=== PATIENT | female | born 1940 | race Caucasian/White ===

== ENCOUNTER 2022-03-26 19:58 | Emergency (ER) | payer MEDICARE, OTHER ==
[2022-03-26 20:13] VITALS: O2SAT 98
[2022-03-26] MEDS ORDERED: Sodium Chloride 0.9% 1000 ML 1,000 ML IV STA (20:38)
[2022-03-26] MEDS ORDERED: Sodium Chloride 0.9% 1000 ML 1,000 ML ONE (20:40)
[2022-03-26 20:53] LABS: Absolute Neutrophil Ct (ANC) 3.87 x10^3/uL (1.4-6.9); Basophil (Absolute #) 0.01 x10^3/uL (0-0.4); Eosinophil % 0.2 % (0.00-5.0); Eosinophil (Absolute #) 0.01 x10^3/uL (0-0.5); Hemoglobin 13.1 g/dL (12.0-16.0); Lymphocyte (Absolute #) 0.56 x10^3/uL (1.0-4.6); Lymphocytes % 11.3 % (24.0-44.0); Mean Cell Volume 83.7 fL (78-100); Mean Corpuscular Hemoglobin 27.4 pg (26-32); Mean Corpuscular Hgb Concent. 32.8 g/dL (32-36); Mean Platelet Volume 11.2 fL (7.5-11.0); Monocytes % 10.1 % (0.0-12.0); Neutrophil % 77.8 % (36.0-66.0); Platelet Count 124 x10^3/uL (150-450); Red Blood Count 4.78 x10^6/uL (4.1-5.4); Red Cell Distribution Width 13.7 % (11.5-14.0)
--- NOTE | 2022-03-26 20:58 | ERPHSYRPT ---
- History of Present Illness Time Seen by Provider: 03/26/22 20:08 Source: patient Exam Limitations: no limitations Patient Subjective Stated Complaint: pt states "I haven't been feeling well for a week or so. I can't eat. I get sick to my stomach when I eat." Triage Nursing Assessment: pt ambulatory to bed by self, alert and oriented x3, skin pwd, pt c/o generally not feeling well for a week, pt states "I am sick to my stomach every time I eat." Dr. Yo recently prescribed zofran odt and amoxicillin for an infected tooth, Pt started taking the amoxicillin on monday for tooth, pt also had labs recently and sodium was low so patient had to go to the infusion center Physician History: 81 years old female with history of hypothyroidism presented in the ER with 1 week history of decreased oral intake, feeling nauseated all the time and worsening with oral intake with some abdominal discomfort in the upper abdomen. Denies any vomiting. Patient has been placed on amoxicillin for almost last 5 days for tooth infection and does report having some loose stool couple days ago which improved now. No fever or chills reported. Feels weak fatigued tired with lack of energy. Currently she does not have any abdominal pain. Has any chest pain palpitations or shortness of breath. No fever or chills reported. Timing/Duration: week(s) (1), gradual onset, worse Severity: moderate Modifying Factors: Worsens With: eating Associated Symptoms: nausea, abdominal pain, loss of appetite, malaise, weakness, No shortness of breath, No cough, No chills, No chest pain, No headaches, No syncope, No seizure Allergies/Adverse Reactions: Sulfa (Sulfonamide Antibiotics) Allergy (Verified 03/24/22 13:46) Hives Home Medications: Acetaminophen 325 mg [Tylenol 325 mg] 325 mg PO DAILY PRN PRN 03/24/22 [History] Atorvastatin Calcium [Lipitor] 10 mg PO DAILY 03/24/22 [History] B,C/Folic/Zinc/Copper Ox/Vit E [Stress B-Complex Tablet] 0.5 tab PO DAILY [History] Cholecalciferol (Vitamin D3) [Vitamin D3] 50 mcg PO DAILY 03/24/22 [History] Cyanocobalamin (Vitamin B-12) [Vitamin B-12] 500 mcg PO DAILY 03/24/22 [History] Ibuprofen [Advil] 200 mg PO DAILY PRN PRN 03/24/22 [History] Levocetirizine Dihydrochloride [Xyzal] 1 tab PO DAILY 03/24/22 [History] Levothyroxine Sodium 75 Mcg [Synthroid 75 Mcg] 75 mcg PO DAILY 03/24/22 [History] Magnesium Citrate and Oxide [Magnesium] 250 mg PO DAILY 03/24/22 [History] Ubidecarenone [Coq10] 100 mg PO DAILY 03/24/22 [History] methocarbamoL [Methocarbamol] 500 mg PO DAILY PRN PRN 03/24/22 [History] Hx Tetanus, Diphtheria Vaccination/Date Given: No Hx Influenza Vaccination/Date Given: No Hx Pneumococcal Vaccination/Date Given: No Immunizations Up to Date: No Travel Risk - International Travel Have you traveled outside of the country in past 3 weeks: No - Coronavirus Screening Are you exhibiting any of the following symptoms?: No Close contact with a COVID-19 positive Pt in past 14-21 Days: No - Vaccine Status Have you recieved a Covid-19 vaccination: No - Review of Systems Constitutional: Fatigue, Weakness Eyes: No Symptoms Ears, Nose, & Throat: No Symptoms Respiratory: No Symptoms Cardiac: No Symptoms Abdominal/Gastrointestinal: Nausea Genitourinary Symptoms: No Symptoms Musculoskeletal: No Symptoms Neurological: No Symptoms Psychological: No Symptoms Endocrine: No Symptoms Hematologic/Lymphatic: No Symptoms Immunological/Allergic: No Symptoms - Past Medical History Pertinent Past Medical History: Yes Neurological History: No Pertinent History ENT History: No Pertinent History Cardiac History: High Cholesterol Respiratory History: No Pertinent History Endocrine Medical History: Hypothyroidism Musculoskeletal History: No Pertinent History GI Medical History: No Pertinent History History: No Pertinent History Psycho-Social History: No Pertinent History Female Reproductive Disorders: Other Other Medical History: vaginal prolaps - Past Surgical History Past Surgical History: No Neuro Surgical History: No Pertinent History Cardiac: No Pertinent History Respiratory: No Pertinent History Gastrointestinal: No Pertinent History Genitourinary: No Pertinent History Musculoskeletal: No Pertinent History Female Surgical History: No Pertinent History - Social History Smoking Status: Former smoker Exposure to second hand smoke: No Drug Use: none Patient Lives Alone: Yes - Nursing Vital Signs Nursing Vital Signs: Initial Vital Signs Temperature 99.1 F 03/26/22 20:13 Pulse Rate 86 03/26/22 20:13 Respiratory Rate 18 03/26/22 20:13 Blood Pressure 185/98 03/26/22 20:13 O2 Sat by Pulse Oximetry 98 03/26/22 20:13 Pain Scale Pain Intensity 0 - Physical Exam General Appearance: no apparent distress, alert Eye Exam: PERRL/EOMI Ears, Nose, Throat Exam: TMs normal, pharynx normal Neck Exam: normal inspection, supple, full range of motion Respiratory Exam: normal breath sounds, lungs clear Cardiovascular Exam: regular rate/rhythm, normal heart sounds Gastrointestinal/Abdomen Exam: soft, normal bowel sounds, No tenderness, No guarding Back Exam: normal inspection, normal range of motion Extremity Exam: normal inspection, normal range of motion Neurologic Exam: alert, oriented x 3, cooperative Skin Exam: normal color SpO2 Interpretation: normal SpO2: 98 O2 Delivery: Room Air Ordered Tests: Active Orders 24 hr Category Date Time Status IV Insertion STAT Care 03/26/22 20:38 Completed NPO (ED) STAT Care 03/26/22 20:38 Completed Release AMA OM.NOW Care 03/26/22 21:59 Completed ABDOMEN AND PELVIS W/0 CONTRAS [CT] Stat Exams 03/26/22 20:38 Taken CBC W DIFF Stat Lab 03/26/22 20:48 Completed CMP Stat Lab 03/26/22 20:48 Completed LIPASE Stat Lab 03/26/22 20:48 Completed MAG [MAGNESIUM] Stat Lab 03/26/22 20:48 Completed TROPONIN Q4H Lab 03/26/22 20:48 Completed TSH [TSH, 3RD Generation] Stat Lab 03/26/22 20:30 Completed UA W/RFX CULTURE Stat Lab 03/26/22 20:40 Completed Medication Summary Discontinued Medications Generic Name Dose Route Start Last Admin Trade Name Freq PRN Reason Stop Dose Admin Sodium Chloride 1,000 mls @ 999 mls/hr 03/26/22 20:38 03/26/22 21:46 Sodium Chloride 0.9% 1000 Ml IV 03/26/22 21:38 Infused .Q1H1M STA Infusion Sodium Chloride Confirm 03/26/22 20:40 Sodium Chloride 0.9% 1000 Ml Administered 03/26/22 20:41 Dose 1,000 mls @ ud .ROUTE .[facility] Lab/Rad Data: Laboratory Result Diagrams 03/26/22 20:48 03/26/22 20:48 Laboratory Results 03/26/22 03/26/22 03/26/22 Range/Units 20:48 20:48 20:48 WBC (4.0-10.5) x10^3/uL RBC (4.1-5.4) x10^6/uL Hgb (12.0-16.0) g/dL Hct (35-47) % MCV (78-100) fL MCH (26-32) pg MCHC (32-36) g/dL RDW (11.5-14.0) % Plt Count (150-450) x10^3/uL MPV (7.5-11.0) fL Gran % (36.0-66.0) % Immature Gran % (Auto) (0.00-0.4) % Nucleat RBC Rel Count (0.00-0.1) % Eos # (Auto) (0-0.5) x10^3/uL Immature Gran # (Auto) (0.00-0.03) x10^3u/L Absolute Lymphs (auto) (1.0-4.6) x10^3/uL Absolute Monos (auto) (0.0-1.3) x10^3/uL Absolute Nucleated RBC (0.00-0.01) x10^3u/L Lymphocytes % (24.0-44.0) % Monocytes % (0.0-12.0) % Eosinophils % (0.00-5.0) % Basophils % (0.0-0.4) % Absolute Granulocytes (1.4-6.9) x10^3/uL Basophils # (0-0.4) x10^3/uL Sodium 125 L (137-145) mmol/L Potassium 3.6 (3.5-5.1) mmol/L Chloride 90 L (98-107) mmol/L Carbon Dioxide 28 (22-30) mmol/L Anion Gap 10.6 (5-15) MEQ/L BUN 16 (7-17) mg/dL Creatinine 1.17 H (0.52-1.04) mg/dL Estimated GFR 47.4 ML/MIN Glucose 149 H (74-106) mg/dL Calcium 9.2 (8.4-10.2) mg/dL Magnesium 2.0 (1.6-2.3) mg/dL Total Bilirubin 0.90 (0.2-1.3) mg/dL AST 35 (14-36) U/L ALT 26 (0-35) U/L Alkaline Phosphatase 78 (38-126) U/L Troponin I < 0.012 (0.000-0.034) ng/mL Serum Total Protein 6.7 (6.3-8.2) g/dL Albumin 4.2 (3.5-5.0) g/dL Lipase 125 (23-300) U/L TSH 3rd Generation (0.47-4.68) mIU/L Urinalys Dipstick Clnc Urine Color (YELLOW) Urine Appearance (CLEAR) Urine pH (5-6) Ur Specific [place] (1.005-1.025) POC Urine Protein Conf (Negative) Urine Ketones (NEGATIVE) Urine Nitrite (NEGATIVE) Urine Bilirubin (NEGATIVE) Urine Urobilinogen (0-1) mg/dL Urine Leukocytes (NEGATIVE) Urine WBC (Auto) (0-5) /HPF Urine RBC (Auto) (0-2) /HPF U Epithel Cells (Auto) (FEW) /HPF Urine Bacteria (Auto) (NEGATIVE) /HPF Urine RBC (0-5) Lucas/ul Ur Culture Indicated? Urine Glucose (NEGATIVE) mg/dL 03/26/22 03/26/22 03/26/22 Range/Units 20:48 20:40 20:30 WBC 5.0 (4.0-10.5) x10^3/uL RBC 4.78 (4.1-5.4) x10^6/uL Hgb 13.1 (12.0-16.0) g/dL Hct 40.0 (35-47) % MCV 83.7 (78-100) fL MCH 27.4 (26-32) pg MCHC 32.8 (32-36) g/dL RDW 13.7 (11.5-14.0) % Plt Count 124 L (150-450) x10^3/uL MPV 11.2 H (7.5-11.0) fL Gran % 77.8 H (36.0-66.0) % Immature Gran % (Auto) 0.4 (0.00-0.4) % Nucleat RBC Rel Count 0.0 (0.00-0.1) % Eos # (Auto) 0.01 (0-0.5) x10^3/uL Immature Gran # (Auto) 0.02 (0.00-0.03) x10^3u/L Absolute Lymphs (auto) 0.56 L (1.0-4.6) x10^3/uL Absolute Monos (auto) 0.50 (0.0-1.3) x10^3/uL Absolute Nucleated RBC 0.00 (0.00-0.01) x10^3u/L Lymphocytes % 11.3 L (24.0-44.0) % Monocytes % 10.1 (0.0-12.0) % Eosinophils % 0.2 (0.00-5.0) % Basophils % 0.2 (0.0-0.4) % Absolute Granulocytes 3.87 (1.4-6.9) x10^3/uL Basophils # 0.01 (0-0.4) x10^3/uL Sodium (137-145) mmol/L Potassium (3.5-5.1) mmol/L Chloride (98-107) mmol/L Carbon Dioxide (22-30) mmol/L Anion Gap (5-15) MEQ/L BUN (7-17) mg/dL Creatinine (0.52-1.04) mg/dL Estimated GFR ML/MIN Glucose (74-106) mg/dL Calcium (8.4-10.2) mg/dL Magnesium (1.6-2.3) mg/dL Total Bilirubin (0.2-1.3) mg/dL AST (14-36) U/L ALT (0-35) U/L Alkaline Phosphatase (38-126) U/L Troponin I (0.000-0.034) ng/mL Serum Total Protein (6.3-8.2) g/dL Albumin (3.5-5.0) g/dL Lipase (23-300) U/L TSH 3rd Generation 3.870 (0.47-4.68) mIU/L Urinalys Dipstick Clnc MAIN LAB Urine Color YELLOW (YELLOW) Urine Appearance CLEAR (CLEAR) Urine pH 7.0 (5-6) Ur Specific [place] 1.015 (1.005-1.025) POC Urine Protein Conf NEGATIVE (Negative) Urine Ketones NEGATIVE (NEGATIVE) Urine Nitrite NEGATIVE (NEGATIVE) Urine Bilirubin NEGATIVE (NEGATIVE) Urine Urobilinogen 0.2 (0-1) mg/dL Urine Leukocytes NEGATIVE (NEGATIVE) Urine WBC (Auto) 0-2 (0-5) /HPF Urine RBC (Auto) NONE (0-2) /HPF U Epithel Cells (Auto) RARE (FEW) /HPF Urine Bacteria (Auto) NONE SEEN (NEGATIVE) /HPF Urine RBC NEGATIVE (0-5) Lucas/ul Ur Culture Indicated? NO Urine Glucose NEGATIVE (NEGATIVE) mg/dL - Progress Progress: improved Progress Note: 03/26/22 21:57 81-year-old is evaluated for generalized weakness, decreased oral intake/ano rexia with low sodium needing IV fluid yesterday with improvement in level of sodium. She is given fluids in here along with Zofran. Feeling much better on reevaluation. Lab work showed sodium of 125. CT abdomen pelvis grossly unremarkable. No UTI. Recommended observation admission which she refused. Patient is not confused or altered at all and wants to leave AGAINST MEDICAL ADVICE. Patient states "I have a lot of animals to take care of and I will follow-up with Dr. Mendieta on Monday." He is advised to follow-up outpatient and discuss signs symptoms of worsening with hyponatremia including seizure, altered mental status needing return which she seems understanding Counseled pt/family regarding: lab results, diagnosis, need for follow-up, rad results - Departure Departure Disposition: AMA Clinical Impression: Hyponatremia, General weakness, Anorexia Condition: Stable Critical Care Time: No Referrals: SEVEN YO DO [Primary Care Provider] - Follow up/PCP as directed (IN 2 DAYS FOR RE EVALUATION ) Instructions: Dehydration, Adult (DC), Hyponatremia (DC) Additional Instructions: Keep yourself well-hydrated. Follow-up with your primary care for reevaluation. Return to ER for worsening of your nausea, decreased oral intake. Decrease free water intake.
[2022-03-26 20:59] LABS: ALBUMIN 4.2 g/dL (3.5-5.0); ANION GAP 10.6 MEQ/L (5-15); BILIRUBIN,TOTAL 0.9 mg/dL (0.2-1.3); Calcium 9.2 mg/dL (8.4-10.2); Creatinine 1 1.17 mg/dL (0.52-1.04); EST GLOMERULAR FILTRATION RATE 47.4 ML/MIN; Potassium 3.6 mmol/L (3.5-5.1); Total Protein 6.7 g/dL (6.3-8.2)
[2022-03-26 21:01] LABS: Appearance CLEAR (CLEAR); Bilirubin NEGATIVE (NEGATIVE); Dipstick done @ ? MAIN LAB; Glucose NEGATIVE (NEGATIVE); Ketones NEGATIVE (NEGATIVE); Nitrite NEGATIVE (NEGATIVE); Protein,Urine Dip NEGATIVE (Negative); RBC NEGATIVE Ery/ul (0-5); Specific Gravity 1.015 (1.005-1.025); Urobilinogen 0.2 mg/dL (0-1)
[2022-03-26 21:02] LABS: Bacteria NONE SEEN /HPF (NEGATIVE); Epithelial Cells RARE /HPF (FEW); WBC 0-2 /HPF (0-5)
[2022-03-26 21:03] LABS: Urine Cultured Indicated? NO
[2022-03-26 21:07] VITALS: BP 156/66; PULSE 97
--- NOTE | 2022-03-27 09:55 | XRAY ---
Indication: Abdomen discomfort and nausea. Multiple contiguous axial images obtained through the abdomen and pelvis without contrast. Comparison: None Lung bases demonstrates moderate bilateral dependent atelectasis versus infiltrates. No effusion. Heart not enlarged. Stomach mildly distended with food/fluid. Noncontrasted stomach and bowel loops appear nonobstructed with normal appendix. Contracted gallbladder without gallstones. No free fluid/air. Nonobstructing left renal punctate calculus and 8mm calcified uterine fibroid. Remaining liver, gallbladder, pancreas, spleen, adrenal glands, kidneys, ureters, bladder, and uterus appear unremarkable for noncontrast exam. Moderate scattered aortoiliac calcifications without AAA. Osseous structures intact with mild osteopenia and mild/moderate degenerative changes throughout the spine. Impression: 1. Bibasilar dependent atelectasis versus infiltrates. 2. Nonobstructing left renal punctate calculus, subcentimeter calcified uterine fibroid, arteriosclerotic disease, and chronic bony findings. 3. Remaining CT abdomen/pelvis without contrast exam is negative. Comment: Preliminary interpretation made by [facility]. No critical discrepancy.
== END 2022-03-26 21:59 | disposition left against medical advice (07) ==
LOC: ED 19:58
DX: E87.1 Hypo-osmolality and hyponatremia (principal); R53.1 Weakness; R63.0 Anorexia; R11.0 Nausea; R10.10 Upper abdominal pain, unspecified; R53.83 Other fatigue; E78.5 Hyperlipidemia, unspecified; Z79.899 Other long term (current) drug therapy; Z28.310 Unvaccinated for COVID-19
CPT/HCPCS: 36000; 36415; 74176; 80053; 81015; 83690; 83735; 84443; 84484; 85025; 96360; 99284

== ENCOUNTER 2022-03-27 09:21 | Observation (INO) | payer MEDICARE, OTHER ==
[2022-03-27] MEDS ORDERED: TYLENOL 325 MG PO PRN (10:21)
[2022-03-27] MEDS ORDERED: Sodium Chloride 0.9% 1000 ML 1,000 ML IV STA (10:21)
--- NOTE | 2022-03-27 10:29 | PCM.HP ---
History of Present Illness - Chief Complaint Chief Complaint: hyponatremia, weakness History of Present Illness: is a 81 year old female. Patient is 81-year-old female with significant past medical history of hypothyroidism recently patient has been treated with antibiotic for colitis and since last few days patient has not been eating well so she was seen in ER last night where her potassium was found to be 125 mmol/L so patient was advised to be admitted for further evaluation but person refused and she went home today morning she came and she wants to be admitted so she was admitted as a direct admit for treatment of weakness and low up sodium. Patient denies any other symptoms. - Review of Systems Constitutional: Weakness, No Fever, No Chills Eyes: No Symptoms Ears, Nose, & Throat: No Symptoms Respiratory: No Cough, No Short Of Breath Cardiac: No Chest Pain, No Edema, No Syncope Abdominal/Gastrointestinal: No Abdominal Pain, No Nausea, No Vomiting, No Diarrhea Genitourinary Symptoms: No Dysuria Musculoskeletal: No Back Pain, No Neck Pain Skin: No Rash Neurological: No Dizziness, No Focal Weakness, No Sensory Changes Psychological: No Symptoms Endocrine: No Symptoms Hematologic/Lymphatic: No Symptoms Immunological/Allergic: No Symptoms Medications & Allergies Home Medications: Home Medication List Acetaminophen 325 mg [Tylenol 325 mg] 325 mg PO DAILY PRN PRN 03/24/22 [History Confirmed 03/27/22] Atorvastatin Calcium [Lipitor] 10 mg PO HS 03/24/22 [History Confirmed 03/27/22] B,C/Folic/Zinc/Copper Ox/Vit E [Stress B-Complex Tablet] 0.5 tab PO DAILY 03/24/22 [History Confirmed 03/27/22] Cholecalciferol (Vitamin D3) [Vitamin D3] 50 mcg PO DAILY 03/24/22 [History Confirmed 03/27/22] Cyanocobalamin (Vitamin B-12) [Vitamin B-12] 500 mcg PO DAILY 03/24/22 [History Confirmed 03/27/22] Ibuprofen [Advil] 200 mg PO DAILY PRN PRN 03/24/22 [History Confirmed 03/27/22] Levocetirizine Dihydrochloride [Xyzal] 0.5 tab PO DAILY 03/24/22 [History Confirmed 03/27/22] Levothyroxine Sodium 75 Mcg [Synthroid 75 Mcg] 0.5 tab PO DAILY 03/24/22 [History Confirmed 03/27/22] Magnesium Citrate and Oxide [Magnesium] 250 mg PO HS 03/24/22 [History Confirmed 03/27/22] Ubidecarenone [Coq10] 100 mg PO DAILY 03/24/22 [History Confirmed 03/27/22] methocarbamoL [Methocarbamol] 500 mg PO DAILY PRN PRN 03/24/22 [History Confirmed 03/27/22] Amoxicillin 250 mg PO TID 03/27/22 [History Confirmed 03/27/22] Aspirin 81 gm Chew [Baby Aspirin 81 mg Chew] 81 mg PO HS 03/27/22 [History Confirmed 03/27/22] Meloxicam 15 mg [Meloxicam 15 MG] 15 mg PO DAILY PRN 03/27/22 [History Confirmed 03/27/22] Allergies/Adverse Reactions: Allergies Allergy/AdvReac Type Severity Reaction Status Date / Time Sulfa (Sulfonamide Allergy Hives Verified 03/24/22 13:46 Antibiotics) - Past Medical History Past Medical History: Yes Neurological History: No Pertinent History ENT History: No Pertinent History Cardiac History: High Cholesterol Respiratory History: No Pertinent History Endocrine Medical History: Hypothyroidism Musculoskelatal History: No Pertinent History GI Medical History: No Pertinent History History: No Pertinent History Pyscho-Social History: No Pertinent History Reproductive Disorders: Other Comment: vaginal prolaps - Past Surgical History Past Surgical History: No Neuro Surgical History: No Pertinent History Cardiac History: No Pertinent History Respiratory Surgery: No Pertinent History GI Surgical History: No Pertinent History Genitourinary Surgical Hx: No Pertinent History Musculskeletal Surgical Hx: No Pertinent History Female Surgical History: No Pertinent History - Social History Smoking Status: Former smoker Exposure to second hand smoke: No Alcohol: Weekly Drug Use: none - Physical Exam General Appearance: no apparent distress, alert Neurologic Exam: alert, oriented x 3, cooperative, normal mood/affect, nml cerebellar function, nml station & gait, sensation nml, No motor deficits Eye Exam: PERRL/EOMI, eyes nml inspection Ears, Nose, Throat Exam: normal ENT inspection, TMs normal, pharynx normal, moist mucous membranes Neck Exam: normal inspection, non-tender, supple, full range of motion Respiratory Exam: normal breath sounds, lungs clear, No respiratory distress Cardiovascular Exam: regular rate/rhythm, normal heart sounds, normal peripheral pulses Gastrointestinal/Abdomen Exam: soft, normal bowel sounds, No tenderness, No mass Back Exam: normal inspection, normal range of motion, No CVA tenderness, No vertebral tenderness Extremity Exam: normal inspection, normal range of motion, pelvis stable Skin Exam: normal color, warm, dry, No rash Lymphatic Exam: No adenopathy Results - Labs Lab/Micro Results: Lab Results-Last 24 Hours 03/27/22 Range/Units 09:59 SARS-CoV-2 Ag (Rapid) POSITIVE A* (NEGATIVE) - Radiology Impressions Radiology Exams & Impressions: CT/ABDOMEN AND PELVIS W/0 CONTRAS Indication: Abdomen discomfort and nausea. Multiple contiguous axial images obtained through the abdomen and pelvis without contrast. Comparison: None Lung bases demonstrates moderate bilateral dependent atelectasis versus infiltrates. No effusion. Heart not enlarged. Stomach mildly distended with food/fluid. Noncontrasted stomach and bowel loops appear nonobstructed with normal appendix. Contracted gallbladder without gallstones. No free fluid/air. Nonobstructing left renal punctate calculus and 8mm calcified uterine fibroid. Remaining liver, gallbladder, pancreas, spleen, adrenal glands, kidneys, ureters, bladder, and uterus appear unremarkable for noncontrast exam. Moderate scattered aortoiliac calcifications without AAA. Osseous structures intact with mild osteopenia and mild/moderate degenerative changes throughout the spine. Impression: 1. Bibasilar dependent atelectasis versus infiltrates. 2. Nonobstructing left renal punctate calculus, subcentimeter calcified uterine fibroid, arteriosclerotic disease, and chronic bony findings. 3. Remaining CT abdomen/pelvis without contrast exam is negative. - Other Procedures and Tests Respiratory Therapy 03/27/22 10:21 EKG STAT Assessment/Plan (1) Hyponatremia Current Visit: Yes Status: Acute Assessment & Plan: Chief Complaint Diagnosis hyponatremia, weakness Allergies Allergy/AdvReac Type Severity Reaction Status Date / Time Sulfa (Sulfonamide Allergy Hives Verified 03/24/22 13:46 Antibiotics) Current Medications Generic Name Dose Route Start Last Admin Trade Name Freq PRN Reason Stop Dose Admin Acetaminophen 325 mg 03/27/22 10:21 Acetaminophen 325 Mg Tablet PO 04/26/22 10:20 Q4H PRN PRN PAIN, FEVER, HEADACHE Sodium Chloride 1,000 mls @ 999 mls/hr 03/27/22 10:21 Sodium Chloride 0.9% 1000 Ml IV 03/27/22 11:21 .Q1H1M STA Sodium Chloride 1,000 mls @ 100 mls/hr 03/27/22 10:30 Sodium Chloride 0.9% 1000 Ml IV 04/26/22 10:29 .Q10H IVETTE Laboratory Results (Last 24 hours) 03/27/22 09:59 SARS-CoV-2 Ag (Rapid) POSITIVE A* Orders (Last 24 hours) Category Date Time Status Up Ad Angie TOLERATED Activity 03/27/22 10:22 Ordered Miscellaneous Nursing Order ROUTINE Care 03/27/22 10:[address] in Observation ROUTINE Care 03/27/22 10:21 Ordered Heart-Healthy Diet Diet 03/27/22 Lunch Ordered CBC W DIFF Stat Lab 03/27/22 10:21 Ordered CMP Stat Lab 03/27/22 10:21 Ordered COVID AG -BINAX NOW RAPID TEST Stat Lab 03/27/22 09:59 Completed NT PRO BNP Stat Lab 03/27/22 10:21 Ordered Acetaminophen 325 mg [Tylenol 325 mg] Med 03/27/22 10:21 Ordered 325 mg PO Q4H PRN PRN Bolus- NaCl 0.9% 1000 ml - (999 ml/Hr) Med 03/27/22 10:21 Ordered NaCl 0.9% 1000 ml [Sodium Chloride 0.9% 1000 ML] 1,000 ml IV 999 mls/hr NaCl 0.9% 1000 ml - 100 ml/Hr Med 03/27/22 10:30 Ordered NaCl 0.9% 1000 ml [Sodium Chloride 0.9% 1000 ML] 1,000 ml IV 100 mls/hr EKG STAT RT 03/27/22 10:21 Ordered Code(s): E87.1 - HYPO-OSMOLALITY AND HYPONATREMIA (2) COVID Current Visit: Yes Status: Acute Code(s): U07.1 - COVID-19 (3) General weakness Current Visit: Yes Status: Acute Code(s): R53.1 - WEAKNESS
[2022-03-27 10:47] LABS: Absolute Neutrophil Ct (ANC) 4.58 x10^3/uL (1.4-6.9); Basophil (Absolute #) 0.01 x10^3/uL (0-0.4); Eosinophil (Absolute #) 0 x10^3/uL (0-0.5); Hematocrit 38.3 % (35-47); Hemoglobin 12.7 g/dL (12.0-16.0); Lymphocytes % 7.4 % (24.0-44.0); Mean Cell Volume 83.4 fL (78-100); Mean Corpuscular Hemoglobin 27.7 pg (26-32); Mean Corpuscular Hgb Concent. 33.2 g/dL (32-36); Mean Platelet Volume 10.3 fL (7.5-11.0); Monocyte (Absolute #) 0.41 x10^3/uL (0.0-1.3); Monocytes % 7.6 % (0.0-12.0); Neutrophil % 84.4 % (36.0-66.0); Platelet Count 127 x10^3/uL (150-450); Red Blood Count 4.59 x10^6/uL (4.1-5.4); Red Cell Distribution Width 13.7 % (11.5-14.0); White Blood Count 5.4 x10^3/uL (4.0-10.5)
[2022-03-27] MEDS: Sodium Chloride 0.9% 1000 ML 1,000 ML IV SCH ×2 (10:52→21:19)
[2022-03-27 11:19] LABS: ALBUMIN 3.8 g/dL (3.5-5.0); ALKALINE PHOSPHATASE 72 U/L (38-126); ANION GAP 10.4 MEQ/L (5-15); BLOOD UREA NITROGEN 8 mg/dL (7-17); CHLORIDE 97 mmol/L (98-107); Calcium 8.5 mg/dL (8.4-10.2); Carbon Dioxide 25 mmol/L (22-30); Creatinine 1 0.73 mg/dL (0.52-1.04); EST GLOMERULAR FILTRATION RATE > 60.0 ML/MIN; Glucose 131 mg/dL (74-106); NT PRO BNP 740 pg/mL (0-1800); Potassium 3.5 mmol/L (3.5-5.1); SGOT/AST 35 U/L (14-36); SGPT/ALT 24 U/L (0-35); SODIUM 128 mmol/L (137-145); Total Protein 6.4 g/dL (6.3-8.2)
[2022-03-27] MEDS ORDERED: NON-FORMULARY ITEM (Meloxicam 15 Mg [Meloxicam 15 Mg] 15 MG Tablet) PO PRN (11:29)
[2022-03-27] MEDS ORDERED: MOTRIN 200 MG PO PRN (11:29)
[2022-03-27] MEDS ORDERED: Robaxin PO PRN (11:29)
[2022-03-27] MEDS ORDERED: MELOXICAM PO PRN (11:59)
[2022-03-27] MEDS: Vitamin B-12 500 MCG PO SCH (12:05)
[2022-03-27] MEDS: SYNTHROID 75 MCG PO SCH (12:05)
[2022-03-27] MEDS: Zofran 4 MG/2 ML VIAL IV PRN ×2 (12:06→21:27)
[2022-03-27] MEDS: VITAMIN D PO SCH (12:18)
[2022-03-27 12:29] LABS: Slide Review 1 YES
[2022-03-27] MEDS ORDERED: MEDICATION INTERVENTION MC SCH ×2 (12:30)
[2022-03-27] MEDS ORDERED: CLARITIN 10 MG PO SCH (13:00)
[2022-03-27] MEDS ORDERED: AMOXICILLIN 250 MG PO SCH (15:00)
[2022-03-27] MEDS ORDERED: MAG-OX 400 PO SCH (22:00)
[2022-03-27] MEDS ORDERED: MAGNESIUM CITRATE AND OXIDE 250 MG PO SCH (22:00)
[2022-03-27] MEDS ORDERED: NON-FORMULARY ITEM (Atorvastatin Calcium 10 MG Tablet) PO SCH (22:00)
[2022-03-27] MEDS ORDERED: ECOTRIN 81 MG PO SCH (22:00)
[2022-03-27] MEDS ORDERED: BABY ASPIRIN 81 MG CHEW PO SCH (22:00)
[2022-03-27] MEDS ORDERED: Zocor 10MG PO SCH (22:00)
[2022-03-28 04:52] LABS: Hematocrit 37.6 % (35-47); Hemoglobin 12.2 g/dL (12.0-16.0); Mean Cell Volume 84.7 fL (78-100); Mean Corpuscular Hemoglobin 27.5 pg (26-32); Mean Corpuscular Hgb Concent. 32.4 g/dL (32-36); Mean Platelet Volume 10.3 fL (7.5-11.0); Platelet Count 135 x10^3/uL (150-450); Red Blood Count 4.44 x10^6/uL (4.1-5.4); Red Cell Distribution Width 13.9 % (11.5-14.0); White Blood Count 4.4 x10^3/uL (4.0-10.5)
[2022-03-28 05:36] LABS: ALBUMIN 3.5 g/dL (3.5-5.0); ALKALINE PHOSPHATASE 54 U/L (38-126); ANION GAP 7.8 MEQ/L (5-15); BLOOD UREA NITROGEN 5 mg/dL (7-17); CHLORIDE 101 mmol/L (98-107); Calcium 8.3 mg/dL (8.4-10.2); Carbon Dioxide 27 mmol/L (22-30); Creatinine 1 0.65 mg/dL (0.52-1.04); EST GLOMERULAR FILTRATION RATE > 60.0 ML/MIN; Glucose 105 mg/dL (74-106); Potassium 3.9 mmol/L (3.5-5.1); SGOT/AST 29 U/L (14-36); SGPT/ALT 21 U/L (0-35); SODIUM 132 mmol/L (137-145); Total Protein 6.1 g/dL (6.3-8.2)
[2022-03-28] MEDS: Sodium Chloride 0.9% 1000 ML 1,000 ML IV SCH (06:25)
[2022-03-28 07:06] LABS: Slide Review YES
[2022-03-28] MEDS: Vitamin B-12 500 MCG PO SCH (09:37)
[2022-03-28] MEDS: VITAMIN D PO SCH (09:37)
[2022-03-28] MEDS: SYNTHROID 75 MCG PO SCH (09:38)
[2022-03-28] MEDS ORDERED: VIT E PO SCH (10:00)
[2022-03-28] MEDS ORDERED: NON-FORMULARY ITEM (Cholecalciferol (Vitamin D3) [Vitamin D3] 50 MCG Tablet) PO SCH (10:00)
[2022-03-28] MEDS ORDERED: NON-FORMULARY ITEM (Ubidecarenone [Coq10] 50 MG Tab.Chew) PO SCH (10:00)
[2022-03-28] MEDS ORDERED: NON-FORMULARY ITEM (Levocetirizine Dihydrochloride [Xyzal] 5 MG Tablet) PO SCH (10:00)
[2022-03-28] MEDS ORDERED: FOLIC PO SCH (10:00)
[2022-03-28] MEDS ORDERED: NON-FORMULARY ITEM (Cyanocobalamin (Vitamin B-12) [Vitamin B-12] 1,000 MCG Capsule) PO SCH (10:00)
[2022-03-28] MEDS ORDERED: CLARITIN 10 MG PO SCH (10:00)
[2022-03-28] MEDS ORDERED: ZINC PO SCH (10:00)
[2022-03-28] MEDS ORDERED: [UNRECOGNIZED DRUG - OTHER] PO SCH (10:00)
[2022-03-28 12:22] VITALS: BP 156/71; PULSE 78; O2SAT 96
--- NOTE | 2022-03-28 12:38 | PCM.DCORD ---
- Discharge Condition: Good Prescriptions: New Levothyroxine Sodium 50 Mcg [Synthroid 50 Mcg] 50 mcg PO DAILY #30 tablet Continue Acetaminophen 325 mg [Tylenol 325 mg] 325 mg PO DAILY PRN PRN PRN Reason: Pain methocarbamoL [Methocarbamol] 500 mg PO DAILY PRN PRN PRN Reason: Pain Magnesium Citrate and Oxide [Magnesium] 250 mg PO HS Atorvastatin Calcium [Lipitor] 10 mg PO HS Levocetirizine Dihydrochloride [Xyzal] 0.5 tab PO DAILY Cholecalciferol (Vitamin D3) [Vitamin D3] 50 mcg PO DAILY Cyanocobalamin (Vitamin B-12) [Vitamin B-12] 500 mcg PO DAILY B,C/Folic/Zinc/Copper Ox/Vit E [Stress B-Complex Tablet] 0.5 tab PO DAILY Ubidecarenone [Coq10] 100 mg PO DAILY Ibuprofen [Advil] 200 mg PO DAILY PRN PRN PRN Reason: Pain Aspirin 81 gm Chew [Baby Aspirin 81 mg Chew] 81 mg PO HS Meloxicam 15 mg [Meloxicam 15 MG] 15 mg PO DAILY PRN PRN Reason: Pain Discontinued Levothyroxine Sodium 75 Mcg [Synthroid 75 Mcg] 0.5 tab PO DAILY Amoxicillin 250 mg PO TID Additional Instructions: Will not be at home alone. Son and daughter are in town. Follow up with: SEVEN FUNES DO [Primary Care Provider] - 04/04/22 1:00 pm
== END 2022-03-28 14:10 | disposition home or self-care (01) ==
LOC: ED 09:21 → MED SURG 09:37
PROVIDERS: ADMIT General Practice; ATTEND Family Medicine
DX: E87.1 Hypo-osmolality and hyponatremia (principal); U07.1 COVID-19; R53.1 Weakness; E03.9 Hypothyroidism, unspecified; Z79.899 Other long term (current) drug therapy; Z20.828 Contact with and (suspected) exposure to other viral communicable diseases
CPT/HCPCS: 36415; 80053; 83880; 85025; 85027; 87811; 93005; 93268; J2405; A9270-GY; G0378

== ENCOUNTER 2024-06-29 13:10 | Emergency (ER) | payer MEDICARE, OTHER ==
--- NOTE | 2024-06-29 13:37 | ERPHSYRPT ---
- History of Present Illness Time Seen by Provider: 06/29/24 13:37 Source: patient, other (friend) Exam Limitations: no limitations Physician History: Pt had onset of felling nervous jittery and nauseated today similar to when she recently had hyponatremia. Discussed with pt and available family risks and benefits of testing/Tx including CBC, CMP, EKG, Trop, BNP, D-dimer, UA, Amylase, Lipase, CT , CXR, swabs for Covid, RSV, Flu and Strep, pain med, Antibiotic and they wish to proceed so these are ordered. Results discussed with pt and available family. Timing/Duration: today Severity: moderate Associated Symptoms: nausea Allergies/Adverse Reactions: Sulfa (Sulfonamide Antibiotics) Allergy (Verified 03/24/22 13:46) Hives Home Medications: Acetaminophen 325 mg [Tylenol 325 mg] 325 mg PO DAILY PRN PRN 03/24/22 [History] Atorvastatin Calcium [Lipitor] 10 mg PO HS 03/24/22 [History] B,C/Folic/Zinc/Copper Ox/Vit E [Stress B-Complex Tablet] 0.5 tab PO DAILY 03/24/22 [History] Cholecalciferol (Vitamin D3) [Vitamin D3] 50 mcg PO DAILY 03/24/22 [History] Cyanocobalamin (Vitamin B-12) [Vitamin B-12] 500 mcg PO DAILY 03/24/22 [History] Ibuprofen [Advil] 200 mg PO DAILY PRN PRN 03/24/22 [History] Levocetirizine Dihydrochloride [Xyzal] 0.5 tab PO DAILY 03/24/22 [History] Magnesium Citrate and Oxide [Magnesium] 250 mg PO HS 03/24/22 [History] Ubidecarenone [Co Q-10] 100 mg PO DAILY 03/24/22 [History] methocarbamoL [Methocarbamol] 500 mg PO DAILY PRN PRN 03/24/22 [History] Aspirin 81 gm Chew [Baby Aspirin 81 mg Chew] 81 mg PO HS 03/27/22 [History] Meloxicam 15 mg [Meloxicam 15 MG] 15 mg PO DAILY PRN 03/27/22 [History] Hx Tetanus, Diphtheria Vaccination/Date Given: No Hx Influenza Vaccination/Date Given: No Hx Pneumococcal Vaccination/Date Given: No - Review of Systems Constitutional: No Fever, No Chills Eyes: No Symptoms Ears, Nose, & Throat: No Symptoms Respiratory: No Cough, No Dyspnea Cardiac: No Chest Pain, No Edema, No Syncope Abdominal/Gastrointestinal: No Abdominal Pain, No Nausea, No Vomiting, No Diarrhea Genitourinary Symptoms: No Dysuria Musculoskeletal: No Back Pain, No Neck Pain, No Fall, No Injury Skin: No Rash Neurological: Other (light headedness no vertigo), No Dizziness, No Focal Weakness, No Sensory Changes Psychological: No Symptoms Endocrine: No Symptoms Hematologic/Lymphatic: No Symptoms Immunological/Allergic: No Symptoms All Other Systems: Reviewed and Negative - Past Medical History Pertinent Past Medical History: Yes Neurological History: No Pertinent History ENT History: No Pertinent History Cardiac History: High Cholesterol Respiratory History: No Pertinent History Endocrine Medical History: Hypothyroidism Musculoskeletal History: No Pertinent History GI Medical History: No Pertinent History History: No Pertinent History Psycho-Social History: No Pertinent History Female Reproductive Disorders: Other Other Medical History: vaginal prolaps - Past Surgical History Past Surgical History: No Neuro Surgical History: No Pertinent History Cardiac: No Pertinent History Respiratory: No Pertinent History Gastrointestinal: No Pertinent History Genitourinary: No Pertinent History Musculoskeletal: No Pertinent History Female Surgical History: No Pertinent History - Social History Smoking Status: Former smoker Exposure to second hand smoke: No Drug Use: none - Nursing Vital Signs Nursing Vital Signs: Initial Vital Signs Temperature 97.5 F 06/29/24 13:11 Pulse Rate 96 H 06/29/24 13:11 Respiratory Rate 18 06/29/24 13:11 Blood Pressure 187/86 06/29/24 13:11 O2 Sat by Pulse Oximetry 98 06/29/24 13:11 Pain Scale Pain Intensity 0 - Physical Exam General Appearance: no apparent distress, alert Eye Exam: PERRL/EOMI, eyes nml inspection Ears, Nose, Throat Exam: normal ENT inspection, TMs normal, pharynx normal, moist mucous membranes Neck Exam: normal inspection, non-tender, supple, full range of motion Respiratory Exam: normal breath sounds, lungs clear, No respiratory distress Cardiovascular Exam: regular rate/rhythm, normal heart sounds, normal peripheral pulses Gastrointestinal/Abdomen Exam: soft, normal bowel sounds, No tenderness, No mass Pelvic Exam: deferred Rectal Exam: deferred Back Exam: normal inspection, normal range of motion, No CVA tenderness, No vertebral tenderness Extremity Exam: normal inspection, normal range of motion, pelvis stable Neurologic Exam: alert, oriented x 3, cooperative, normal mood/affect, nml cerebellar function, nml station & gait, sensation nml, No motor deficits Skin Exam: normal color, warm, dry, No rash Lymphatic Exam: No adenopathy SpO2 Interpretation: normal SpO2: 98 O2 Delivery: Room Air - Course Nursing assessment & vital signs reviewed: Yes EKG Interpreted by Me: Sinus Rhythm, NORMAL AXIS, NORMAL INTERVALS, Non-specific ST Changes, Other (septal Q. ) Ordered Tests: Active Orders 24 hr Category Date Time Status EKG-ER Only STAT Care 06/29/24 13:42 Active IV Insertion STAT Care 06/29/24 13:42 Active AMYLASE Stat Lab 06/29/24 13:58 Completed CBC W DIFF Stat Lab 06/29/24 13:58 Completed CMP Stat Lab 06/29/24 13:58 Completed LIPASE Stat Lab 06/29/24 13:58 Completed Lactic Acid Stat Lab 06/29/24 13:42 Completed Lactic Acid Stat Lab 06/29/24 16:06 Received TROPONIN Q4H Lab 06/29/24 13:58 Completed TROPONIN Q4H Lab 06/29/24 17:45 Ordered TROPONIN Q4H Lab 06/29/24 21:45 Ordered UA W/RFX UR CULTURE Stat Lab 06/29/24 13:58 Completed Medication Summary Discontinued Medications Generic Name Dose Route Start Last Admin Trade Name Freq PRN Reason Stop Dose Admin Sodium Chloride 1,000 mls @ 999 mls/hr 06/29/24 13:42 06/29/24 15:29 Sodium Chloride 0.9% 1000 Ml IV 06/29/24 14:42 Infused .Q1H1M STA Infusion Sodium Chloride Confirm 06/29/24 14:00 Sodium Chloride 0.9% 1000 Ml Administered 06/29/24 14:01 Dose 1,000 mls @ ud .ROUTE .STK-MED ONE Ondansetron HCl 4 mg 06/29/24 13:42 06/29/24 14:05 Ondansetron Hcl 4 Mg/2 Ml Vial IV 06/29/24 13:43 4 mg STAT ONE Administration Ondansetron HCl Confirm 06/29/24 14:00 Ondansetron Hcl 4 Mg/2 Ml Vial Administered 06/29/24 14:01 Dose 4 mg .ROUTE .STK-MED ONE Lab/Rad Data: Laboratory Result Diagrams 06/29/24 13:58 06/29/24 13:58 Laboratory Results 06/29/24 06/29/24 06/29/24 Range/Units 13:58 13:58 13:58 WBC 8.3 (3.98-10.04) x10^3/uL RBC 4.64 (3.93-5.22) x10^6/uL Hgb 13.2 (11.2-15.7) g/dL Hct 39.6 (34.1-44.9) % MCV 85.3 (79.4-94.8) fL MCH 28.4 (25.6-32.2) pg MCHC 33.3 (32.2-35.5) g/dL RDW 13.6 (11.7-14.4) % Plt Count 196 (182-369) x10^3/uL MPV 10.4 (9.4-12.3) fL Gran % 77.8 H (34.0-71.1) % Immature Gran % (Auto) 0.4 (0.001-0.429) % Nucleat RBC Rel Count 0.0 (0.00-0.2) % Eos # (Auto) 0.03 L (0.04-0.36) x10^3/uL Immature Gran # (Auto) 0.03 (0.001-0.031) x10^3u/L Absolute Lymphs (auto) 0.98 L (1.18-3.74) x10^3/uL Absolute Monos (auto) 0.73 (0.24-0.86) x10^3/uL Absolute Nucleated RBC 0.00 (0.00-0.012) x10^3u/L Lymphocytes % 11.9 L (19.3-51.7) % Monocytes % 8.8 (4.7-12.5) % Eosinophils % 0.4 L (0.7-5.8) % Basophils % 0.7 (0.1-1.2) % Absolute Granulocytes 6.44 H (1.56-6.13) x10^3/uL Basophils # 0.06 (0.01-0.08) x10^3/uL Sodium 134 L (135-145) mmol/L Potassium 4.1 (3.5-5.1) mmol/L Chloride 97 L (98-107) mmol/L Carbon Dioxide 26 (22-30) mmol/L Anion Gap 15.6 H (5-15) MEQ/L BUN 11 (7-17) mg/dL Creatinine 0.86 (0.52-1.04) mg/dL Estimated GFR 67.8 ML/MIN Glucose 126 H (74-106) mg/dL Lactic Acid (0.4-2.0) Calcium 9.7 (8.4-10.2) mg/dL Total Bilirubin 1.10 (0.2-1.3) mg/dL AST 32 (14-36) U/L ALT 23 (0-35) U/L Alkaline Phosphatase 77 (38-126) U/L Troponin I < 0.012 (0.000-0.033) ng/mL Serum Total Protein 6.9 (6.3-8.2) g/dL Albumin 4.7 (3.5-5.0) g/dL Amylase 51 (30-110) U/L Lipase 75 (23-300) U/L Urine Color (Yellow) Urine Appearance (Clear) Urine pH (4.6-8.0) Ur Specific [place] (1.005-1.030) Urine Protein (Negative) Urine Glucose (UA) (Negative) mg/dL Urine Ketones (Negative) Urine Blood (Negative) Urine Nitrite (Negative) Urine Bilirubin (Negative) Urine Urobilinogen (0.2) mg/dL Ur Leukocyte Esterase (Negative) U Hyaline Cast (Auto) (0-2) /LPF Urine Microscopic RBC (0-5) /HPF Urine Microscopic WBC (0-5) /HPF Ur Epithelial Cells (None Seen) /HPF Urine Bacteria (None Seen) /HPF Urine Culture Reflexed (NO) 06/29/24 06/29/24 Range/Units 13:58 13:42 WBC (3.98-10.04) x10^3/uL RBC (3.93-5.22) x10^6/uL Hgb (11.2-15.7) g/dL Hct (34.1-44.9) % MCV (79.4-94.8) fL MCH (25.6-32.2) pg MCHC (32.2-35.5) g/dL RDW (11.7-14.4) % Plt Count (182-369) x10^3/uL MPV (9.4-12.3) fL Gran % (34.0-71.1) % Immature Gran % (Auto) (0.001-0.429) % Nucleat RBC Rel Count (0.00-0.2) % Eos # (Auto) (0.04-0.36) x10^3/uL Immature Gran # (Auto) (0.001-0.031) x10^3u/L Absolute Lymphs (auto) (1.18-3.74) x10^3/uL Absolute Monos (auto) (0.24-0.86) x10^3/uL Absolute Nucleated RBC (0.00-0.012) x10^3u/L Lymphocytes % (19.3-51.7) % Monocytes % (4.7-12.5) % Eosinophils % (0.7-5.8) % Basophils % (0.1-1.2) % Absolute Granulocytes (1.56-6.13) x10^3/uL Basophils # (0.01-0.08) x10^3/uL Sodium (135-145) mmol/L Potassium (3.5-5.1) mmol/L Chloride (98-107) mmol/L Carbon Dioxide (22-30) mmol/L Anion Gap (5-15) MEQ/L BUN (7-17) mg/dL Creatinine (0.52-1.04) mg/dL Estimated GFR ML/MIN Glucose (74-106) mg/dL Lactic Acid 2.1 H (0.4-2.0) Calcium (8.4-10.2) mg/dL Total Bilirubin (0.2-1.3) mg/dL AST (14-36) U/L ALT (0-35) U/L Alkaline Phosphatase (38-126) U/L Troponin I (0.000-0.033) ng/mL Serum Total Protein (6.3-8.2) g/dL Albumin (3.5-5.0) g/dL Amylase (30-110) U/L Lipase (23-300) U/L Urine Color Yellow (Yellow) Urine Appearance Cloudy A (Clear) Urine pH 7.5 (4.6-8.0) Ur Specific [place] 1.015 (1.005-1.030) Urine Protein Negative (Negative) Urine Glucose (UA) Negative (Negative) mg/dL Urine Ketones Negative (Negative) Urine Blood Negative (Negative) Urine Nitrite Negative (Negative) Urine Bilirubin Negative (Negative) Urine Urobilinogen 0.2 (0.2) mg/dL Ur Leukocyte Esterase Negative (Negative) U Hyaline Cast (Auto) NONE SEEN (0-2) /LPF Urine Microscopic RBC 3-5 (0-5) /HPF Urine Microscopic WBC 0-2 (0-5) /HPF Ur Epithelial Cells Moderate A (None Seen) /HPF Urine Bacteria Rare A (None Seen) /HPF Urine Culture Reflexed NO (NO) - Progress Progress: improved, re-examined Progress Note: 06/29/24 16:13 discussed with pt and her friend that we have not yet excluded potential circulation problems , cardiac problems, that could cause a cva or heart attack, or there even could be other pathology and even result in or complications otherwise, and that hyponatremia does not explain her symptoms today. They understand and wish to decline admission or obs for furhter testing inhospital today and wish outpt f/u with PMD monday and have the capacity to make this choice. Normal mental status. Normal Neuro exam. No carotid bruits. Normalfundi and PERRL EOM full and visual berger intact. 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 Abd soft nontender without peritoneal signs or masses. 06/29/24 16:20 Counseled pt/family regarding: lab results, diagnosis, need for follow-up Medical Desision Making - Independent Historian Additional History obtained from: Relative/friend - Discussion of managment Reviewed:: Test results, Need for additional workup Agreed on:: Treatment plan, need for follow-up - Diagnostic Testing Diagnostic test were ordered, analyzed, and reviewed by me: Yes - Risk of complications The pt has a high risk of morbidity or mortality based on: Decision regarding hospitilization or escalation of hosp level of care - Departure Departure Disposition: Home Clinical Impression: unexplained transient epsode of symptoms Condition: Good Critical Care Time: No Referrals: REJI SHAFFER NP [Primary Care Provider] - Follow up/PCP as directed Instructions: Dizziness, Nonvertigo, (DC) Additional Instructions: See your Dr. to have further workup considered such as MRI for brainb circulation or heart tests or other as indicated. your blood pressure has improved but still is some elevated so see your Dr. for that as well. Return meantime if symptoms recur or any concerns, dizziness, vision changes, chest pain , short of breath, stomach pain or any other symptoms of concern.
[2024-06-29 13:43] VITALS: TEMP 97.5
[2024-06-29] MEDS ORDERED: Sodium Chloride 0.9% 1000 ML 1,000 ML ONE (14:00)
[2024-06-29] MEDS ORDERED: Zofran 4 MG/2 ML VIAL ONE (14:00)
[2024-06-29] MEDS: Zofran 4 MG/2 ML VIAL IV ONE (14:05)
[2024-06-29] MEDS: Sodium Chloride 0.9% 1000 ML 1,000 ML IV STA (14:05)
[2024-06-29 14:07] LABS: Absolute Neutrophil Ct (ANC) 6.44 x10^3/uL (1.56-6.13); BASOPHIL % 0.7 % (0.1-1.2); Basophil (Absolute #) 0.06 x10^3/uL (0.01-0.08); Eosinophil % 0.4 % (0.7-5.8); Eosinophil (Absolute #) 0.03 x10^3/uL (0.04-0.36); Hematocrit 39.6 % (34.1-44.9); Hemoglobin 13.2 g/dL (11.2-15.7); IMMATURE GRAN # 0.03 x10^3u/L (0.001-0.031); IMMATURE GRAN % 0.4 % (0.001-0.429); Lymphocyte (Absolute #) 0.98 x10^3/uL (1.18-3.74); Lymphocytes % 11.9 % (19.3-51.7); Mean Cell Volume 85.3 fL (79.4-94.8); Mean Corpuscular Hemoglobin 28.4 pg (25.6-32.2); Mean Corpuscular Hgb Concent. 33.3 g/dL (32.2-35.5); Mean Platelet Volume 10.4 fL (9.4-12.3); Monocyte (Absolute #) 0.73 x10^3/uL (0.24-0.86); Monocytes % 8.8 % (4.7-12.5); Neutrophil % 77.8 % (34.0-71.1); Platelet Count 196 x10^3/uL (182-369); Red Blood Count 4.64 x10^6/uL (3.93-5.22); Red Cell Distribution Width 13.6 % (11.7-14.4); White Blood Count 8.3 x10^3/uL (3.98-10.04)
[2024-06-29 14:13] LABS: Appearance Cloudy (Clear); Bacteria Rare /HPF (None Seen); Bilirubin Negative (Negative); Blood Negative (Negative); Epithelial Cells Moderate /HPF (None Seen); Glucose, Urine Negative (Negative); Hyaline Casts NONE SEEN /LPF (0-2); Ketones Negative (Negative); Leukocyte Esterase Negative (Negative); Nitrite Negative (Negative); Ph 7.5 (4.6-8.0); Protein,Urine Dip Negative (Negative); Specific Gravity 1.015 (1.005-1.030); Urobilinogen 0.2 mg/dL (0.2); WBC 0-2 /HPF (0-5)
[2024-06-29 14:23] LABS: ALBUMIN 4.7 g/dL (3.5-5.0); ANION GAP 15.6 MEQ/L (5-15); BILIRUBIN,TOTAL 1.1 mg/dL (0.2-1.3); Calcium 9.7 mg/dL (8.4-10.2); Creatinine 1 0.86 mg/dL (0.52-1.04); EST GLOMERULAR FILTRATION RATE 67.8 ML/MIN; Potassium 4.1 mmol/L (3.5-5.1); Total Protein 6.9 g/dL (6.3-8.2)
[2024-06-29 16:32] VITALS: BP 158/78; PULSE 86; RESP 14; O2SAT 99
== END 2024-06-29 16:46 | disposition home or self-care (01) ==
LOC: ED 13:10
DX: R11.0 Nausea (principal); R45.0 Nervousness; E78.5 Hyperlipidemia, unspecified; Z79.899 Other long term (current) drug therapy
CPT/HCPCS: 36415; 80053; 81001; 82150; 83605; 83690; 84484; 85025; 93005; 96361; 96374; 99284; J2405